=== PATIENT | male | born 1985 | race Caucasian/White ===

== ENCOUNTER 2017-01-11 17:12 | Inpatient (IN) | payer OTHER ==
[~2017-01-11] VITALS: Ht 177.8 cm; Wt 90.7 kg
[2017-01-11 18:00] VITALS: Ht 177.8 cm; Wt 90.7 kg
[2017-01-11 18:45] VITALS: BP 126/66; RESP 18
[2017-01-11 19:26] VITALS: BP 127/73; RESP 20
[2017-01-11] MEDS ORDERED: ONDANSETRON 4 MG INJ IV PRN (19:30)
[2017-01-11] MEDS ORDERED: DOCUSATE SODIUM 100 MG CAP PO PRN (19:30)
[2017-01-11] MEDS ORDERED: ACETAMINOPHEN 325 MG TAB PO PRN (19:30)
[2017-01-11] MEDS ORDERED: VANCOMYCIN IV PER PHARMACY XX SCH (19:30)
[2017-01-11] MEDS ORDERED: NACL 0.9% 3 ML SYG IV SCH (19:30)
[2017-01-11] MEDS ORDERED: HYDROCODONE/APAP (5/325) TAB PO PRN (19:30)
[2017-01-11] MEDS: morphine 2 MG INJ IV PRN (19:31)
[2017-01-11 20:32] LABS: CREATININE 0.84 mg/dl (0.61-1.24)
[2017-01-11] MEDS ORDERED: VANCOMYCIN 1.75 GM in NS 500 ML IVPB ONE (22:00)
[2017-01-11] MEDS: VANCOMYCIN 750 MG in SOD CHLORIDE 0.9% 150 ML IVPB SCH (23:19)
[2017-01-12] VITALS (8 sets, daily range): BP systolic 96–127; BP diastolic 49–80; PULSE 68–92; RESP 15–23
[2017-01-12] MEDS: morphine 2 MG INJ IV PRN ×2 (00:38→04:26)
--- NOTE | 2017-01-12 00:52 | CONS ---
DATE OF ADMISSION: 01/11/2017 DATE OF CONSULTATION: 01/11/2017 TYPE OF CONSULTATION: Orthopedic. HISTORY OF PRESENT ILLNESS: The patient is a 31-year-old male who was transferred in from [facility] because of the painful swelling involving his right upper extremity. According to the patien t, he developed this painful swelling about 3 to 4 days ago after working in his garbage cleaning. He was seen at the emergency room of [facility] about 2 days ago, and probably was treated with oral antibiotics; however, because of the increasing pain and swelling he returned to the [facility] Emergency Room today and was transferred in because of the insurance arrangement. He denies any use of IV drugs or skin popping. My examination revealed a 31-year-old male who is alert and oriented. He denies any substance use. He is showing low grade temperature with 100.5 and the CBC done in the emergency room of the [facility] on the day of his transfer is showing leukocytosis with a WBC count of 15.6. There was a localized area of what appeared to be part of the abscess in the antecubital fossa with the swelling proximally and distally. There were no palpable enlarged lymph nodes in the axillary area in a gross ited examination. There were no signs of neurovascular compromise at this time. Her range of motio n of the right elbow is limited because of the swelling and pain. CT of the right hip done in the [facility] is showing multi-loculated fluid collection in the a nterior aspect near the level of elbow which measures 2.6 cm x 1.7 cm x 4.6 cm along with the associ ated soft tissue swelling. DIAGNOSTIC IMPRESSION: Abscess over the antecubital fossa with a CT documented multi-loculated flui d collection along with the surrounding cellulitis. TREATMENT PLAN: 1. MRI scan of the right upper extremity. 2. To surgery for I and D of abscess after reviewing MRI scan. Dictated By: CHENTE LARA/ROSAURA Conf#: [id number] DID#: [id number]
[2017-01-12] MEDS: VANCOMYCIN 750 MG in SOD CHLORIDE 0.9% 150 ML IVPB SCH ×2 (05:33→13:07)
[2017-01-12 05:39] LABS: ADD SCAN DIFF NO
[2017-01-12 05:51] LABS: ABNORMAL IP MESSAGE 1; BASOPHIL # 0.1 10^3/ul (0.0-0.1); BASOPHILS % 0.3 % (0.0-2.0); EOSINOPHILS # 0.2 10^3/ul (0.0-0.5); EOSINOPHILS % 1.6 % (0.0-7.0); HEMATOCRIT 41.6 % (42.0-52.0); HEMOGLOBIN 14.3 g/dl (14.0-18.0); LYMPHOCYTES # 2.3 10^3/ul (0.8-2.9); LYMPHOCYTES % 15.7 % (15.0-51.0); MEAN CORPUSCULAR HEMOGLOBIN 30.5 pg (29.0-33.0); MEAN CORPUSCULAR HGB CONC 34.4 g/dl (32.0-37.0); MEAN CORPUSCULAR VOLUME 88.7 fl (82.0-101.0); MEAN PLATELET VOLUME 9.8 fl (7.4-10.4); MONOCYTE # 1.9 10^3/ul (0.3-0.9); MONOCYTES % 12.6 % (0.0-11.0); NEUTROPHIL # 10.2 10^3/ul (1.6-7.5); NEUTROPHILS % 69.5 % (39.0-77.0); PLATELET COUNT 311 10^3/UL (140-415); RED BLOOD COUNT 4.69 10^6/ul (4.70-6.10); RED CELL DISTRIBUTION WIDTH 12.2 % (11.5-14.5); WHITE BLOOD COUNT 14.8 10^3/ul (4.8-10.8)
[2017-01-12] MEDS ORDERED: morphine 4 MG/ML VIAL IV PRN ×2 (06:04→18:30)
[2017-01-12 06:26] LABS: POTASSIUM 4.2 mmol/L (3.5-5.1)
[2017-01-12 06:28] LABS: CREATININE 0.84 mg/dl (0.61-1.24)
[2017-01-12 06:29] LABS: PHOSPHORUS 3.7 mg/dl (2.5-4.9)
[2017-01-12] MEDS ORDERED: ACETAMINOPHEN 1000 MG/100 ML IVPB ONE (07:00)
[2017-01-12] MEDS ORDERED: CEFAZOLIN 1 GM INJ ONE (07:00)
--- NOTE | 2017-01-12 07:19 | HP ---
DATE OF ADMISSION: 01/11/2017 CHIEF COMPLAINT: Right elbow pain. HISTORY OF PRESENT ILLNESS: The patient is a 31-year-old male with no past medical history. 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 Three days ago, he noticed redness developing in his right elbow. He went to [facility] ____ the patient may have left AMA as he stated that he could not stay. He states that the redness in his arm got worse. He presented ba ck to [facility] today, where he had a CT scan of his right elbow that showed an abscess in the right upper arm. The patient was transferred to [facility] for insurance reasons. Lilli graves he has no other complaints. He denies any other medical history. PAST MEDICAL HISTORY: Denies. PAST SURGICAL HISTORY: Tonsillectomy as a kid. HOME MEDICATIONS: None. ALLERGIES: NO KNOWN DRUG ALLERGIES. FAMILY HISTORY: Denies. SOCIAL HISTORY: Does report smoking half pack of cigarettes a day. Denies any alcohol abuse. Zack es drug abuse. Denies any IV drug use. REVIEW OF SYSTEMS: Twelve-point review of systems negative except that discussed in HPI. PHYSICAL EXAMINATION: VITAL SIGNS: Temperature is 101.3, pulse 96, respiratory rate is 18, BP is 126/66, saturation 92% o n room air. GENERAL: No acute distress. Alert and oriented. HEENT: Normocephalic, atraumatic. Pupils equally round, reactive to light. CHEST: Clear to auscultation. CARDIOVASCULAR: Regular rate and rhythm. ABDOMEN: Nondistended, nontender, soft. EXTREMITIES: No clubbing, cyanosis, edema in the lower extremities. Right arm is notable for an ab scess at the right elbow. LABORATORIES: At [facility], white count ____, hemoglobin is 15.1, platelets are 285. Chemistry: Sodi um is 137, potassium is 4.0, chloride is 99, total bilirubin is 0.4, total protein is 8.7. INR is [address]03. DIAGNOSTICS: CT of the right arm shows ____ loculated fluid collection in anterior aspect of the ri ght upper arm, ____ to the elbow consistent with an abscess. ASSESSMENT AND PLAN: 1. Sepsis secondary to right arm abscess and cellulitis. The patient does meet sepsis criteria, carroll s a white count ____ and a temperature 101.3. Source is obviously the right elbow abscess. The pat ient will be put on IV antibiotics. Will get ID consultation as well as orthopedic consultation, Dr Matti Carbajal. Dr. Carbajal of Orthopedics is aware of the patient's admission status. Source of the infection reportedly is from working in the patient's grandmother's house. 2. Prophylaxis: SCDs. Dictated By: COOKIE FLORES MD BS/NTS Conf#: [id number] DID#: [id number]
[2017-01-12] MEDS ORDERED: INFLUENZA VIRUS VACCINE 0.5 ML (DISPENSING) IM* ONE (09:00)
--- NOTE | 2017-01-12 10:47 | PN ---
Date/Time of Note Date/Time of Note DATE: 01/12/17 TIME: 10:41 Assessment/Plan VTE Prophylaxis VTE Prophylaxis Intervention: SCD's Lines/Catheters IV Catheter Type (from Nrsg): [place] Lock Assessment/Plan Assessment/Plan 1. Sepsis per criteria secondary to right arm abscess and cellulitis. 2. Right arm abscess( possible right elbow abscess) 3. Intractable right arm pain due to abscess Plan: IV abx vancomyinc, I will add Ancef 1 gram IV Q 8 hr for streptococcus coverage d/c morphine, start IV Dilaudid 2 mg IV Q 4 hr prn severe pain S/p Orthopedic consult by , Plan for surgery today pt has no significant medical history ,no h/o CAD, no h/o stroke,no famiily History- pt is medically cleared for surgery with mild to moderate risk with appropriate surgical risks and complications CXR and EKG has been ordered for pre op DVT Prophylaxis: SCDs. Subjective 24 Hr Interval Summary Free Text/Dictation pt c/o arm pain, morphine is not helping, plan is to get MRI , s/p Ortho evaluation Exam/Review of Systems Vital Signs Vitals Vital Signs Date Time Temp Pulse Resp B/P Pulse Ox O2 Delivery O2 Flow Rate FiO2 01/12/17 08:11 99.2 83 18 117/62 95 Intake and Output 01/11/17 01/11/17 01/12/17 15:00 23:00 07:00 Intake Total 270 ml Balance 270 ml Exam GENERAL: No acute distress. Alert and oriented. HEENT: Normocephalic, atraumatic. Pupils equally round, reactive to light. CHEST: Clear to auscultation. CARDIOVASCULAR: Regular rate and rhythm. ABDOMEN: Nondistended, nontender, soft. EXTREMITIES: No clubbing, cyanosis, edema in the lower extremities. Right arm is notable for an abscess at the right elbow. Results Result Diagram: 01/12/17 0516 01/12/17 0516 Results 24 hrs Laboratory Tests Test 01/11/17 20:10 01/12/17 05:16 Blood Urea Nitrogen 8 14 Creatinine 0.84 0.84 Anion Gap 17 H Basophils # 0.1 Basophils % 0.3 Calcium Level 9.0 Carbon Dioxide Level 25 Chloride Level 101 Eosinophils # 0.2 Eosinophils % 1.6 Glucose Level 101 Hematocrit 41.6 L Hemoglobin 14.3 Hemoglobin A1c 5.2 Lymphocytes # 2.3 Lymphocytes % 15.7 Magnesium Level 2.0 Mean Corpuscular Hemoglobin 30.5 Mean Corpuscular Hemoglobin Concent 34.4 Mean Corpuscular Volume 88.7 Mean Platelet Volume 9.8 Monocytes # 1.9 H Monocytes % 12.6 H Neutrophils # 10.2 H Neutrophils % 69.5 Nucleated Red Blood Cells # 0.0 Nucleated Red Blood Cells % 0.0 Phosphorus Level 3.7 Platelet Count 311 Potassium Level 4.2 Red Blood Count 4.69 L Red Cell Distribution Width 12.2 Sodium Level 139 White Blood Count 14.8 H Medications Medications Current Medications Ondansetron HCl (Zofran Inj) 4 mg Q6H PRN IV NAUSEA AND/OR VOMITING; Start 01/11 at 19:30 Acetaminophen (Tylenol Tab) 650 mg Q6H PRN PO PAIN LEVEL 1-3 OR FEVER Last administered on 01/11/17 19:31; Admin Dose 650 MG; Start 01/11/17 at 19:30 Acetaminophen/ Hydrocodone Bitart ([place] (5/325)) 1 tab Q6H PRN PO MODERATE PAIN LEVEL 4-6 Last administered on 01/12/17 02:41; Admin Dose 1 TAB; Start 01/11 at 19:30 Docusate Sodium (Colace) 100 mg Q12H PRN PO CONSTIPATION; Start 01/11/17 at 19: 30 Zolpidem Tartrate 5 mg 5 mg QHS PRN PO SLEEP; Start 01/11/17 at 19:30 Vancomycin HCl/ Sodium Chloride (Vancocin/NS) 150 ml @ 75 mls/hr Q8H IVPB Last administered on 01/12/17 05:33; Admin Dose 75 MLS/HR; Start 01/11/17 at 22: 00 Miscellaneous Information (*Rx Drug Level Order Reminder*) VANCO TROUGH @ 2, 100 ON... ONCE ONCE XX ; Start 01/12/17 at 21:00; Stop 01/12/17 at 21:01 Hydromorphone HCl (Dilaudid) 2 mg Q4H PRN IV Severe PAIN; Start 01/12/17 at 11: 00; Status ROCKY VELÁZQUEZ MD Jan 12, 2017 10:46
--- NOTE | 2017-01-12 11:38 | RADRPT ---
PROCEDURE: Chest Radiograph. CLINICAL INDICATION: Preop TECHNIQUE: Single frontal chest radiograph. COMPARISON: None available FINDINGS: The cardiomediastinal silhouette is within normal limits. No infiltrate or effusion is seen. Th e bones are intact. IMPRESSION: 1. Unremarkable chest radiograph. RPTAT: AA .Austin Serrato MD, MD Date Time Electronically viewed and signed by .Austin Serrato MD, on 01/12/2017 11:38 .B/
--- NOTE | 2017-01-12 11:39 | RADRPT ---
PROCEDURE: MRI OF THE RIGHT ELBOW. CLINICAL INDICATION: Cellulitis, abscess. History of diabetes. TECHNIQUE: Multiple MRI images were obtained utilizing multiple sequences and all three planes. Genevieve ges were interpreted on high-resolution PACS system. COMPARISON: None FINDINGS: There is a loculated complex fluid collection suggestive of an abscess within the subcutaneous soft tissues of the anterior elbow extending adjacent to the biceps brachii muscle and brachialis muscle measuring up to 5.0 cm transverse by 4.1 cm AP by 7.2 cm cranial-caudal. The fluid collection exten ds adjacent to the skin surface. There is mild edema within the biceps brachii, brachialis, and bra chioradialis muscles. The biceps tendon is otherwise intact. The brachialis and triceps tendons are intact. The common extensor tendon is intact. The radial collateral and lateral ulnar collateral ligaments are intact. The common flexor tendon is intact. The medial collateral ligament is intact. There is no acute fracture or bone marrow edema. There is no evidence of osteomyelitis. The articula r cartilage of the radiocapitellar and ulnohumeral joints is intact. There are no erosive changes. No significant joint effusion is present. No osteochondral bodies are visualized. The ulnar nerve and cubital tunnel retinaculum are intact. The median and radial nerves are unremar kable. RPTAT: ZZ IMPRESSION: 1. Loculated abscess within the subcutaneous soft tissues of the anterior elbow over the biceps and brachialis muscles measuring up to 7.2 cm with adjacent muscle edema. 2. No evidence of osteomyelitis. .Alexia Baker MD, Date Time Electronically viewed and signed by .Alexia Baker MD, on 01/12/2017 11:39 .T/
[2017-01-12] MEDS: HYDROmorphONE 2 MG/ML SYG IV PRN ×3 (11:56→23:44)
--- NOTE | 2017-01-12 13:47 | RADRPT ---
Vent Rate: 84 bpm RR Interval: 0 msec NV Interval: 144 msec QRS Duration: 90 msec QT Interval: 350 msec QTC Interval: 413 msec P-R-T [place]: 47 - 34 - 51 degrees Normal sinus rhythm Normal ECG Electronically Signed By: Jesse Lopez [id number]
[2017-01-12 14:44] LABS: HAAIG REFLEX REFLEX FILED
[2017-01-12] MEDS: CEFAZOLIN 1 GM/50 ML (PMX) 50 ML IVPB SCH ×2 (15:33→21:36)
[2017-01-12 15:51] LABS: HEPATITIS B CORE ANTIBODY NEGATIVE (NEGATIVE)
--- NOTE | 2017-01-12 16:43 | HPN ---
Date/Time of Note Date/Time of Note DATE: 01/12/17 TIME: 16:43 Interval H&P Admission Note Pt. seen H&P reviewed: No system changes SIRI RODRIGUEZ MD Jan 12, 2017 16:43
[2017-01-12] MEDS ORDERED: PROPOFOL 20 ML ONE ×2 (16:59→17:30)
[2017-01-12] MEDS ORDERED: FENTAnyl 50 MCG/ML VIAL ONE ×2 (17:00→17:04)
[2017-01-12] MEDS ORDERED: MIDAZOLAM 1 MG/ML 2 ML INJ ONE ×3 (17:00→17:04)
[2017-01-12] MEDS ORDERED: ROPIVACAINE 0.5 % 30 ML VIAL ONE (17:05)
[2017-01-12] MEDS ORDERED: PHENYLephrine (100 MCG/ML) 5ML SYG ONE (17:17)
[2017-01-12] MEDS ORDERED: POLYMYXIN/BACITRACIN 1L IRRIG IRR ONE (17:30)
[2017-01-12] MEDS ORDERED: ONDANSETRON 4 MG INJ ONE (17:30)
[2017-01-12] MEDS ORDERED: METOCLOPRAMIDE 10 MG INJ ONE (17:30)
[2017-01-12] MEDS ORDERED: BACITRACIN 50000 UNITS INJ IRR ONE (17:30)
[2017-01-12] MEDS ORDERED: DEXAMETHASONE 4 MG/ML 1 ML INJ ONE (17:30)
[2017-01-12] MEDS ORDERED: KETOROLAC 30 MG INJ ONE (17:30)
[2017-01-12] MEDS: SOD CHLORIDE 0.9% 1,000 ML IV SCH (19:02)
--- NOTE | 2017-01-12 19:45 | OPR ---
DATE OF OPERATION: 01/12/2017 PREOPERATIVE DIAGNOSIS: Abscess over the antecubital fossa of the right elbow with extending cellul itis superior and inferiorly. POSTOPERATIVE DIAGNOSIS: Abscess over the antecubital fossa of the right elbow with extending cellu litis superior and inferiorly. OPERATION PERFORMED 1. Open irrigation and drainage of the abscess, followed by debridement as needed. 2. Closure over a [place] drain. ANESTHESIA: General anesthesia. SURGEON: Chente Carbajal MD PROCEDURE AND FINDINGS: Under anesthesia, the patient was placed in supine position upon the operat ing table. A tourniquet was placed over the proximal portion of the right arm, but was never inflat ed. A transverse incision was made along the skin crease over the anterior aspect of the antecubita l fossa, including the open wound. If needed, extended incision was planned proximally and distally according to the situation; however, extension was not needed. Through the incision, the area was explored and there was drainage of pus and a specimen was taken from the purulent drainage for labs tests. Gentle dissection was carried out proximally and distally over the area, taking down the adh esions and promoting further drainage. Following initial irrigation, further debridement was elsa d out with the assistance of hydrogen peroxide and then the area was thoroughly irrigated and washed using a power irrigation system implying antibiotic solutions. At the end of the procedure, the re turn seems to be fairly clean. At that time, multiple [place] drains were placed in the area. Then 2 stitches were placed for a partial closure. After, we put sterile pressure dressings over the a nico, procedure was terminated. The patient tolerated the entire procedure very well and was sent to the recovery room in excellent condition. Dictated By: CHENTE LARA/ROSAURA Conf#: [id number] DID#: [id number]
[2017-01-12] MEDS: VANCOMYCIN 1.5 GM in SOD CHLORIDE 0.9% 250 ML IVPB SCH (23:18)
[2017-01-13] MEDS: SOD CHLORIDE 0.9% 1,000 ML IV SCH ×3 (04:05→21:36)
[2017-01-13] MEDS: HYDROmorphONE 2 MG/ML SYG IV PRN ×5 (04:53→21:26)
[2017-01-13] MEDS: CEFAZOLIN 1 GM/50 ML (PMX) 50 ML IVPB SCH ×3 (05:29→21:30)
[2017-01-13 05:33] LABS: ADD SCAN DIFF NO
[2017-01-13 05:50] LABS: INR 1.02; PROTIME 13.4 Sec (12.2-14.2)
[2017-01-13 05:51] LABS: BASOPHILS % 0.1 % (0.0-2.0); HEMATOCRIT 40.3 % (42.0-52.0); HEMOGLOBIN 13.7 g/dl (14.0-18.0); LYMPHOCYTES # 1.2 10^3/ul (0.8-2.9); MEAN CORPUSCULAR HEMOGLOBIN 30.2 pg (29.0-33.0); MEAN PLATELET VOLUME 9.9 fl (7.4-10.4); MONOCYTE # 1.1 10^3/ul (0.3-0.9); MONOCYTES % 8.2 % (0.0-11.0); NEUTROPHILS % 82.3 % (39.0-77.0); PLATELET COUNT 340 10^3/UL (140-415); RED BLOOD COUNT 4.53 10^6/ul (4.70-6.10); RED CELL DISTRIBUTION WIDTH 11.8 % (11.5-14.5); WHITE BLOOD COUNT 13.4 10^3/ul (4.8-10.8)
[2017-01-13] MEDS: VANCOMYCIN 1.5 GM in SOD CHLORIDE 0.9% 250 ML IVPB SCH ×3 (06:32→22:30)
[2017-01-13 07:06] LABS: ALBUMIN 3.5 g/dl (3.3-4.9); POTASSIUM 4.2 mmol/L (3.5-5.1)
[2017-01-13 07:08] LABS: CREATININE 0.75 mg/dl (0.61-1.24)
[2017-01-13 07:09] LABS: ALBUMIN/GLOBULIN RATIO 1.25; TOTAL PROTEIN 6.3 g/dl (6.1-8.1)
[2017-01-13 07:26] VITALS: BP 117/78; RESP 20
--- NOTE | 2017-01-13 10:03 | PN ---
Date/Time of Note Date/Time of Note DATE: 01/13/17 TIME: 10:01 Assessment/Plan VTE Prophylaxis VTE Prophylaxis Intervention: other Lines/Catheters IV C[facility] Type [facility]from [facility] Peripheral IV Assessment/Plan Problems: (1) Hepatitis C antibody positive in blood Status: Acute Comment: Unknown duration. The patient has a negative hepatitis B surface antigen. Waiting the hepatitis C viral RNA confirmation. If he has positive RNA he will will need to be referred for treatment as an outpatient. (2) Abscess of right arm Status: Acute Comment: Patient reports that this was due to a trauma while working in his garage. He denies any history of injury or injection drug usage Subjective 24 Hr Interval Summary Constitutional: no complaints (Denies fevers chills or sweats) Respiratory: no complaints Cardiovascular: no complaints Gastrointestinal: no complaints Genitourinary: no complaints Skin: other (Reports arm pain is much better) Exam/Review of Systems Vital Signs Vitals Vital Signs Date Time Temp Pulse Resp B/P Pulse Ox O2 Delivery O2 Flow Rate FiO2 01/13/17 07:26 98.2 82 20 117/78 98 01/12/17 19:53 Room Air 01/12/17 18:18 6.0 Intake and Output 01/12/17 01/12/17 01/13/17 15:00 23:00 07:00 Intake Total 150 ml 800 ml 850 ml Output Total 20 ml Balance 150 ml 780 ml 850 ml Exam Constitutional: alert, oriented Respiratory: clear to auscultation, normal air movement Cardiovascular: nl pulses, regular rate and rhythm Results Result Diagram: 01/13/17 0501 01/13/17 0501 Results 24 hrs Laboratory Tests Test 01/12/17 14:10 01/12/17 21:20 01/13/17 05:01 HIV (1&2) Antibody NEGATIVE Hepatitis B Core Total Antibody NEGATIVE Hepatitis B Surface Antigen NEGATIVE Hepatitis C Antibody REACTIVE H Vancomycin Level Trough < 5.0 L Activated Partial Thromboplast Time 32.0 Alanine Aminotransferase (ALT/SGPT) 45 Albumin 3.5 Albumin/Globulin Ratio 1.25 Alkaline Phosphatase 84 Anion Gap 18 H Aspartate Amino Transf (AST/SGOT) 17 Basophils # 0.0 Basophils % 0.1 Blood Urea Nitrogen 17 Calcium Level 9.0 Carbon Dioxide Level 20 L Chloride Level 107 Creatinine 0.75 Direct Bilirubin 0.00 Eosinophils # 0.0 Eosinophils % 0.0 Globulin 2.80 Glucose Level 149 # Hematocrit 40.3 L Hemoglobin 13.7 L INR International Normalized Ratio 1.02 Indirect Bilirubin 0.0 Lymphocytes # 1.2 Lymphocytes % 9.0 L Mean Corpuscular Hemoglobin 30.2 Mean Corpuscular Hemoglobin Concent 34.0 Mean Corpuscular Volume 89.0 Mean Platelet Volume 9.9 Monocytes # 1.1 H Monocytes % 8.2 Neutrophils # 11.0 H Neutrophils % 82.3 H Nucleated Red Blood Cells # 0.0 Nucleated Red Blood Cells % 0.0 Platelet Count 340 Potassium Level 4.2 Prothrombin Time 13.4 Prothrombin Time Ratio 1.0 Red Blood Count 4.53 L Red Cell Distribution Width 11.8 Sodium Level 141 Total Bilirubin 0.0 L Total Protein 6.3 White Blood Count 13.4 H Medications Medications Current Medications Ondansetron HCl (Zofran Inj) 4 mg Q6H PRN IV NAUSEA AND/OR VOMITING; Start 01/11 at 19:30 Acetaminophen (Tylenol Tab) 650 mg Q6H PRN PO PAIN LEVEL 1-3 OR FEVER Last administered on 01/11/17 19:31; Admin Dose 650 MG; Start 01/11/17 at 19:30 Acetaminophen/ Hydrocodone Bitart ([place] (5/325)) 1 tab Q6H PRN PO MODERATE PAIN LEVEL 4-6 Last administered on 01/12/17 02:41; Admin Dose 1 TAB; Start 01/11 at 19:30 Docusate Sodium (Colace) 100 mg Q12H PRN PO CONSTIPATION; Start 01/11/17 at 19: 30 Zolpidem Tartrate (Ambien) 5 mg QHS PRN PO SLEEP; Start 01/11/17 at 19:30 Hydromorphone HCl 2 mg 2 mg Q4H PRN IV Severe PAIN Last administered on 09:19; Admin Dose 2 MG; Start 01/12/17 at 11:00 Cefazolin Sodium 50 ml @ 100 mls/hr Q8 IVPB Last administered on 01/13/17 05: 29; Admin Dose 100 MLS/HR; Start 01/12/17 at 14:00 Sodium Chloride (NS) 1,000 ml @ 100 mls/hr Q10H IV Last administered on 19:02; Admin Dose 100 MLS/HR; Start 01/12/17 at 18:05 Morphine Sulfate (morphine) 3 mg Q3H PRN IV PAIN; Start 01/12/17 at 18:30 Acetaminophen/ Hydrocodone Bitart 1 tab 1 tab Q3 PRN PO pain; Start 01/12/17 at 18:30 Vancomycin HCl/ Sodium Chloride (Vancocin/NS) 250 ml @ 83.333 mls/ hr Q8H IVPB Last administered on 01/13/17 06:32; Admin Dose 83.333 MLS/HR; Start 01/12/17 at 22:30 FREDERICK MENDES MD Jan 13, 2017 10:03
[2017-01-13 10:18] LABS: ADD SCAN DIFF NO
[2017-01-13 10:24] LABS: ABNORMAL IP MESSAGE 1; BASOPHILS % 0.2 % (0.0-2.0); HEMOGLOBIN 13.1 g/dl (14.0-18.0); LYMPHOCYTES # 1.6 10^3/ul (0.8-2.9); LYMPHOCYTES % 9.4 % (15.0-51.0); MEAN CORPUSCULAR HEMOGLOBIN 30.8 pg (29.0-33.0); MEAN CORPUSCULAR HGB CONC 34.5 g/dl (32.0-37.0); MEAN CORPUSCULAR VOLUME 89.2 fl (82.0-101.0); MEAN PLATELET VOLUME 9.8 fl (7.4-10.4); MONOCYTE # 1.7 10^3/ul (0.3-0.9); MONOCYTES % 9.9 % (0.0-11.0); NEUTROPHIL # 13.5 10^3/ul (1.6-7.5); PLATELET COUNT 357 10^3/UL (140-415); RED BLOOD COUNT 4.26 10^6/ul (4.70-6.10); RED CELL DISTRIBUTION WIDTH 11.9 % (11.5-14.5); WHITE BLOOD COUNT 16.8 10^3/ul (4.8-10.8)
[2017-01-13] MEDS: HYDROCODONE/APAP (7.5/325) TAB PO PRN ×3 (12:08→22:37)
[2017-01-13 19:00] VITALS: BP 110/69; RESP 20
[2017-01-14] MEDS: HYDROmorphONE 2 MG/ML SYG IV PRN ×6 (01:38→22:50)
[2017-01-14] MEDS: HYDROCODONE/APAP (7.5/325) TAB PO PRN ×3 (02:43→20:10)
[2017-01-14] MEDS: VANCOMYCIN 1.25 GM in SOD CHLORIDE 0.9% 250 ML IVPB SCH ×3 (02:43→18:47)
[2017-01-14] MEDS: CEFAZOLIN 1 GM/50 ML (PMX) 50 ML IVPB SCH ×4 (05:31→22:50)
[2017-01-14 07:23] VITALS: BP 111/55; RESP 20
--- NOTE | 2017-01-14 09:32 | PN ---
Date/Time of Note Date/Time of Note DATE: 01/14/17 TIME: 09:30 Assessment/Plan VTE Prophylaxis VTE Prophylaxis Intervention: other Lines/Catheters IV Catheter Type (from [facility]): Peripheral IV Urinary Cath still in place: No Assessment/Plan Problems: (1) Abscess of right arm Status: Acute Comment: Transition over to oral medications. Discharge timing and planning as per Dr. Carbajal. (2) Hepatitis C antibody positive in blood Status: Acute Comment: I have informed the patient of this. He has been advised he will need to follow-up with his primary care physician through [facility] [place] under [employer] insurance Subjective 24 Hr Interval Summary Free Text/Dictation Patient reports he is improving steadily. No known history of exposure to hepatitis not allergic to sulfa Constitutional: no complaints (No fevers chills or sweats) Respiratory: no complaints Cardiovascular: no complaints Gastrointestinal: no complaints Genitourinary: no complaints Musculoskeletal: other (Arm pain improved) Exam/Review of Systems Vital Signs Vitals Vital Signs Date Time Temp Pulse Resp B/P Pulse Ox O2 Delivery O2 Flow Rate FiO2 01/14/17 07:23 97.9 65 20 111/55 97 01/12/17 19:53 Room Air 01/12/17 18:18 6.0 Intake and Output 01/13/17 01/13/17 01/14/17 15:00 23:00 07:00 Intake Total 2920 ml 1220 ml Balance 2920 ml 1220 ml Exam Constitutional: alert, oriented Respiratory: clear to auscultation, normal air movement Cardiovascular: nl pulses, regular rate and rhythm Gastrointestinal: nl liver, spleen, non-tender, soft Extremities: other (Right arm better range of motion.) Results Result Diagram: 01/13/17 0935 01/13/17 0501 Results 24 hrs Laboratory Tests Test 01/13/17 09:35 01/13/17 21:35 Basophils # 0.0 Basophils % 0.2 Eosinophils # 0.0 Eosinophils % 0.0 Hematocrit 38.0 L Hemoglobin 13.1 L Lymphocytes # 1.6 Lymphocytes % 9.4 L Mean Corpuscular Hemoglobin 30.8 Mean Corpuscular Hemoglobin Concent 34.5 Mean Corpuscular Volume 89.2 Mean Platelet Volume 9.8 Monocytes # 1.7 H Monocytes % 9.9 Neutrophils # 13.5 H Neutrophils % 80.0 H Nucleated Red Blood Cells # 0.0 Nucleated Red Blood Cells % 0.0 Platelet Count 357 Red Blood Count 4.26 L Red Cell Distribution Width 11.9 White Blood Count 16.8 #H Vancomycin Level Trough 22.7 *H Medications Medications Current Medications Ondansetron HCl (Zofran Inj) 4 mg Q6H PRN IV NAUSEA AND/OR VOMITING; Start 01/11 at 19:30 Acetaminophen (Tylenol Tab) 650 mg Q6H PRN PO PAIN LEVEL 1-3 OR FEVER Last administered on 01/11/17 19:31; Admin Dose 650 MG; Start 01/11/17 at 19:30 Acetaminophen/ Hydrocodone Bitart ([place] (5/325)) 1 tab Q6H PRN PO MODERATE PAIN LEVEL 4-6 Last administered on 01/12/17 02:41; Admin Dose 1 TAB; Start 01/11 at 19:30 Docusate Sodium (Colace) 100 mg Q12H PRN PO CONSTIPATION; Start 01/11/17 at 19: 30 Zolpidem Tartrate (Ambien) 5 mg QHS PRN PO SLEEP; Start 01/11/17 at 19:30 Hydromorphone HCl 2 mg 2 mg Q4H PRN IV Severe PAIN Last administered on 05:31; Admin Dose 2 MG; Start 01/12/17 at 11:00 Cefazolin Sodium 50 ml @ 100 mls/hr Q8 IVPB Last administered on 01/14/17 05: 31; Admin Dose 100 MLS/HR; Start 01/12/17 at 14:00 Sodium Chloride (NS) 1,000 ml @ 100 mls/hr Q10H IV Last administered on 21:36; Admin Dose 100 MLS/HR; Start 01/12/17 at 18:05 Morphine Sulfate (morphine) 3 mg Q3H PRN IV PAIN; Start 01/12/17 at 18:30 Acetaminophen/ Hydrocodone Bitart 1 tab 1 tab Q3 PRN PO pain Last administered on 01/14/17 02:43; Admin Dose 1 TAB; Start 01/12/17 at 18:30 Vancomycin HCl/ Sodium Chloride (Vancocin/NS) 250 ml @ 83.333 mls/ hr Q8H IVPB Last administered on 01/14/17 02:43; Admin Dose 83.333 MLS/HR; Start 01/14/17 at 03:00 FREDERICK MENDES MD Jan 14, 2017 09:32
[2017-01-14] MEDS: TRIMETHOPRIM/SULFAMETHOX (DS) TAB PO SCH ×2 (09:37→20:10)
[2017-01-14] MEDS: SOD CHLORIDE 0.9% 1,000 ML IV SCH ×2 (09:38→20:10)
--- NOTE | 2017-01-14 18:24 | PN ---
DATE: 01/14/2017 Second postop day, afebrile with a temperature of 97.9 Fahrenheit and still had a leukocytosis with the WBC count of 16.8 on 01/10/2017. The dressings were opened and the area was inspected. Patient obviously was opening the dressings on his own and had removed 3 [place] drains out of [address] maynard I have placed in. Part of the skin sutures were also disrupted. The patient was initially den cecilio handling the dressings himself; however, he admits that he was playing with the dressings. Genia inabre is minimal; however, judging from the patient's handling dressings without any aseptic precaut ions means that there might be additional iatrogenic infection. Probably the patient will need repe ated open irrigation followed by repeated closure of the wound over a suction tube so that the sucti on tubes can be removed prior to discharge. The patient has been also going down with a heparin lock in place, suggesting the possibility of him injecting IV drugs through the heparin lock. The patient was advised not to go down any further. The patient will be scheduled for repeat irrigation and closure of the incision over the suction tub e 03/17/2017. Dictated By: CHENTE LARA/ROSAURA Conf#: [id number] DID#: [id number]
[2017-01-14 20:00] VITALS: BP 115/56; PULSE 62; RESP 18
[2017-01-14] MEDS: ZOLPIDEM 5 MG TAB PO PRN (23:14)
[2017-01-15] VITALS (16 sets, daily range): BP systolic 100–137; BP diastolic 53–80; PULSE 64–89; RESP 12–20
[2017-01-15] MEDS: VANCOMYCIN 1.25 GM in SOD CHLORIDE 0.9% 250 ML IVPB SCH ×2 (03:07→11:13)
[2017-01-15] MEDS: HYDROmorphONE 2 MG/ML SYG IV PRN ×5 (04:17→21:18)
[2017-01-15] MEDS: SOD CHLORIDE 0.9% 1,000 ML IV SCH ×3 (05:45→23:33)
[2017-01-15] MEDS: CEFAZOLIN 1 GM/50 ML (PMX) 50 ML IVPB SCH ×2 (06:15→16:00)
[2017-01-15] MEDS: TRIMETHOPRIM/SULFAMETHOX (DS) TAB PO SCH (08:50)
--- NOTE | 2017-01-15 09:55 | PN ---
Date/Time of Note Date/Time of Note DATE: 01/15/17 TIME: 09:52 Assessment/Plan VTE Prophylaxis VTE Prophylaxis Intervention: SCD's Lines/Catheters IV Catheter Type (from Nrsg): Peripheral IV Urinary Cath still in place: No Assessment/Plan Assessment/Plan 1. Sepsis per criteria secondary to right arm abscess and cellulitis. 2. Right arm abscess( possible right elbow abscess) s/p Incision and drainage by orthopedic 3. Intractable right arm pain due to abscess Plan: IV abx ancef and vancomycin drain catheter pulled out by patient, plan for closure of wound by today d/c IVF tomorrow on Sunday DVT Prophylaxis: SCDs. Subjective 24 Hr Interval Summary Free Text/Dictation drain pulled out by patient, plan for reclosure of wound by Exam/Review of Systems Vital Signs Vitals Vital Signs Date Time Temp Pulse Resp B/P Pulse Ox O2 Delivery O2 Flow Rate FiO2 01/15/17 07:31 97.4 63 20 100/53 98 01/14/17 20:00 Room Air 01/12/17 18:18 6.0 Intake and Output 01/14/17 01/14/17 01/15/17 14:59 22:59 06:59 Intake Total 3300 ml 650 ml Balance 3300 ml 650 ml Exam Constitutional: alert, oriented Respiratory: clear to auscultation, normal air movement Cardiovascular: nl pulses, regular rate and rhythm Gastrointestinal: nl liver, spleen, non-tender, soft Extremities: other (Right arm better range of motion.) Results Result Diagram: 01/13/17 0935 01/13/17 0501 Medications Medications Current Medications Ondansetron HCl (Zofran Inj) 4 mg Q6H PRN IV NAUSEA AND/OR VOMITING; Start 01/11 at 19:30 Acetaminophen (Tylenol Tab) 650 mg Q6H PRN PO PAIN LEVEL 1-3 OR FEVER Last administered on 01/11/17 19:31; Admin Dose 650 MG; Start 01/11/17 at 19:30 Acetaminophen/ Hydrocodone Bitart ([place] (5/325)) 1 tab Q6H PRN PO MODERATE PAIN LEVEL 4-6 Last administered on 01/12/17 02:41; Admin Dose 1 TAB; Start 01/11 at 19:30 Docusate Sodium (Colace) 100 mg Q12H PRN PO CONSTIPATION; Start 01/11/17 at 19: 30 Zolpidem Tartrate (Ambien) 5 mg QHS PRN PO SLEEP Last administered on 01/14/17 23:14; Admin Dose 5 MG; Start 01/11/17 at 19:30 Hydromorphone HCl 2 mg 2 mg Q4H PRN IV Severe PAIN Last administered on 08:51; Admin Dose 2 MG; Start 01/12/17 at 11:00 Cefazolin Sodium 50 ml @ 100 mls/hr Q8 IVPB Last administered on 01/15/17 06: 15; Admin Dose 100 MLS/HR; Start 01/12/17 at 14:00 Sodium Chloride (NS) 1,000 ml @ 100 mls/hr Q10H IV Last administered on 20:10; Admin Dose 100 MLS/HR; Start 01/12/17 at 18:05 Morphine Sulfate (morphine) 3 mg Q3H PRN IV PAIN; Start 01/12/17 at 18:30 Acetaminophen/ Hydrocodone Bitart 1 tab 1 tab Q3 PRN PO pain Last administered on 01/14/17 20:10; Admin Dose 1 TAB; Start 01/12/17 at 18:30 Vancomycin HCl/ Sodium Chloride (Vancocin/NS) 250 ml @ 83.333 mls/ hr Q8H IVPB Last administered on 01/15/17 03:07; Admin Dose 83.333 MLS/HR; Start 01/14/17 at 03:00 Trimethoprim/ Sulfamethoxazole (Bactrim (Ds)) 1 tab BID PO Last administered on 01/15/17 08:50; Admin Dose 1 TAB; Start 01/14/17 at 09:30; Stop 01/24/17 at 09 :29 ROCKY BHAKTA MD Jan 15, 2017 09:55
--- NOTE | 2017-01-15 13:37 | HPN ---
Date/Time of Note Date/Time of Note DATE: 01/15/17 TIME: 13:37 Interval H&P Admission Note Pt. seen H&P reviewed: No system changes SIRI RODRIGUEZ MD Jan 15, 2017 13:37
[2017-01-15] MEDS ORDERED: SODIUM CL BACTERIOSTATIC 30 ML INJ ONE (13:38)
[2017-01-15] MEDS ORDERED: PROPOFOL 20 ML ONE (13:48)
[2017-01-15] MEDS ORDERED: ONDANSETRON 4 MG INJ ONE (13:48)
[2017-01-15] MEDS ORDERED: ROCURONIUM 50 MG INJ ONE (13:48)
[2017-01-15] MEDS ORDERED: MIDAZOLAM 1 MG/ML 2 ML INJ ONE (13:48)
[2017-01-15] MEDS ORDERED: FENTAnyl 50 MCG/ML VIAL ONE (13:48)
[2017-01-15] MEDS ORDERED: GLYCOPYRROLATE 1 MG INJ ONE (13:48)
[2017-01-15] MEDS ORDERED: NEOSTIGMINE 3 MG/3 ML SYRINGE ONE (13:48)
[2017-01-15] MEDS ORDERED: DEXAMETHASONE 4 MG/ML 1 ML INJ ONE (13:49)
[2017-01-15] MEDS ORDERED: ROPIVACAINE 0.5 % 30 ML VIAL ONE (13:49)
[2017-01-15] MEDS ORDERED: BACITRACIN 50000 UNITS INJ IRR ONE (14:20)
[2017-01-15] MEDS ORDERED: TRIMETHOBENZAMIDE 100 MG/ML VIAL IM PRN (14:30)
[2017-01-15] MEDS ORDERED: ONDANSETRON 4 MG INJ IV PRN (14:30)
[2017-01-15] MEDS ORDERED: hydrALAzine 20 MG INJ IV PRN (14:30)
[2017-01-15] MEDS ORDERED: MEPERIDINE 25 MG INJ IV PRN (14:30)
[2017-01-15] MEDS ORDERED: MIDAZOLAM 1 MG/ML 2 ML INJ IV PRN (14:30)
[2017-01-15] MEDS ORDERED: DIPHENHYDRAMINE 50 MG INJ IV PRN (14:30)
[2017-01-15] MEDS ORDERED: FENTAnyl 50 MCG/ML VIAL IV PRN ×3 (14:30)
[2017-01-15] MEDS ORDERED: EPHEDrine SULFATE 50 MG/5 ML SYG IV PRN (14:30)
[2017-01-15] MEDS ORDERED: LABETALOL HCL 20MG INJ IV PRN (14:30)
[2017-01-15] MEDS ORDERED: HYDROCODONE/APAP (5/325) TAB PO PRN (15:00)
[2017-01-15] MEDS ORDERED: morphine 2 MG INJ IV PRN (15:00)
[2017-01-15] MEDS ORDERED: NACL 0.9% 3 ML SYG IV SCH (15:00)
--- NOTE | 2017-01-15 15:27 | OPR ---
DATE OF OPERATION: 01/15/2017 PREOPERATIVE DIAGNOSIS: Open wound following incision and drainage of abscess, right elbow with iat rogenic recurrent soiling and early removal of the drain. POSTOPERATIVE DIAGNOSIS: Open wound following incision and drainage of abscess, right elbow with ia trogenic recurrent soiling and early removal of the drain. OPERATION PERFORMED: Open irrigation and debridement followed by a closure. ANESTHESIA: General anesthesia. SURGEON: Chente Carbajal MD PROCEDURE AND FINDINGS: Under anesthesia, the patient was placed in supine position upon the operat ing table. The usual prep and drape was done exposing the right elbow and right upper extremity. E xploration revealed that there is a fair amount of healing granulation tissue going from underneath; however, there was a recurrent contamination of the wound. Using power irrigation system and utili zing antibiotic solution, the area was thoroughly irrigated and cleared and debrided. Bleeding was minimal. Following the debridement and closure of the wound was carried out using 2-0 Vicryl in sub cuticular fashion and then skin closure was carried out with Dermabond in order to prevent any furth er soiling. The usual sterile pressure dressings were applied. The patient tolerated the entire procedure very well and was sent to the recovery room in excellent condition. Dictated By: CHENTE LARA/ROSAURA Conf#: [id number] DID#: [id number]
[2017-01-15] MEDS: HYDROCODONE/APAP (7.5/325) TAB PO PRN (16:06)
--- NOTE | 2017-01-15 17:03 | CONS ---
DATE OF ADMISSION: 01/11/2017 DATE OF CONSULTATION: 01/15/2017 REASON FOR CONSULTATION: Antibiotic management. HISTORY OF PRESENT ILLNESS: Aric Belle is a 31-year-old male who comes in with right elbow pain . His past problems include status post T and A as a child. 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 He went to the emergency room at [facility] but left AMA. The redness got worse. Sarthak lock presented again to [facility]. A CT scan of the right elbow showed an abscess to the right u pper arm. He was transferred to [facility]. This was on 01/11/2017. He was felt to be se ptic secondary to right arm abscess and cellulitis with a temperature of 101.3. On admission, his w maritza count was 14.8, H and H of 14.3 and 41.6, platelet count of 311,000. Now, he is 16.8. His BUN and creatinine 17/0.75 and he is negative for HIV, but has hepatitis C antibody. So he is hepatiti s C positive. An MRI of the elbow showed loculated abscess within the subcutaneous soft tissue of t he anterior elbow over the biceps and the brachium muscles measuring up to 7.2 cm with adjacent musc le edema. No evidence of osteomyelitis. Chest x-ray unremarkable. MICROBIOLOGY: The right arm is growing out Staph aureus which is sensitive to everything. HOSPITAL COURSE: The patient seen by Dr. Mona Carbajal and on 01/12/2017 he had open irrigation and alexander inage of the abscess, which was over the antecubital fossa of the right elbow with extending celluli tis inferior. A transverse incision was made along the skin crease over the anterior aspect of the antecubital fossa including the open wound. Area was explored and there was drainage of pus. He carroll d further irrigation and debridement with hydrogen peroxide and it was thoroughly irrigated. Multip le Allen drains were placed in the area. Currently, on 01/15/2017, he again had open irrigation a nd debridement followed by closure. Open wound following incision and drainage of abscess right elb ow with the iatrogenic recurrent soiling and early removal of the drain. PAST MEDICAL HISTORY: Operations as outlined. FAMILY HISTORY: Noncontributory. SOCIAL HISTORY: He smokes a half pack a day. Does not drink or abuse drugs. ALLERGIES: NONE TO PENICILLIN, SULFA OR FOODS. MEDICATIONS: Per chart. REVIEW OF SYSTEMS: As per HPI. PHYSICAL EXAMINATION: GENERAL: The patient is a well-developed, well-nourished male who is alert, responsive, in no acute distress. VITAL SIGNS: T-max of 101.3. This was on 01/11/2017. He is currently afebrile. SKIN: Without generalized rash. HEENT: Within normal limits. NECK: Supple. LYMPH NODES: None palpable. CHEST: Decreased breath sounds at the bases. HEART: Without murmur or gallop. ABDOMEN: Soft, nontender, without organosplenomegaly or masses. EXTREMITIES: The right arm is wrapped at the present time status post irrigation and drainage x2. He is currently on vancomycin and cefazolin. According to the culture he is growing out Staph aureu s sensitive to Cefazolin, Levaquin, and to vancomycin. We will switch him over to ceftriaxone. I w ill dictate my findings to the hospitalist and to Dr. Carbajal. Dictated By: KENAN NICOLE MD, JD/ROSAURA Conf#: [id number] DID#: [id number]
[2017-01-15] MEDS: CEFTRIAXONE 1 GM/50 ML (PMX) 50 ML IVPB SCH (17:16)
[2017-01-15] MEDS: ZOLPIDEM 5 MG TAB PO PRN (21:30)
[2017-01-16] MEDS: HYDROmorphONE 2 MG/ML SYG IV PRN ×6 (02:04→22:38)
[2017-01-16 05:38] LABS: ADD SCAN DIFF NO
[2017-01-16 05:53] LABS: BASOPHILS % 0.2 % (0.0-2.0); EOSINOPHILS % 0.1 % (0.0-7.0); HEMATOCRIT 40.6 % (42.0-52.0); HEMOGLOBIN 13.6 g/dl (14.0-18.0); LYMPHOCYTES # 1.8 10^3/ul (0.8-2.9); LYMPHOCYTES % 10.2 % (15.0-51.0); MEAN CORPUSCULAR HGB CONC 33.5 g/dl (32.0-37.0); MEAN CORPUSCULAR VOLUME 89.6 fl (82.0-101.0); MEAN PLATELET VOLUME 9.5 fl (7.4-10.4); MONOCYTE # 1.3 10^3/ul (0.3-0.9); MONOCYTES % 7.1 % (0.0-11.0); NEUTROPHIL # 14.4 10^3/ul (1.6-7.5); NEUTROPHILS % 81.2 % (39.0-77.0); PLATELET COUNT 453 10^3/UL (140-415); RED BLOOD COUNT 4.53 10^6/ul (4.70-6.10); RED CELL DISTRIBUTION WIDTH 11.9 % (11.5-14.5); WHITE BLOOD COUNT 17.8 10^3/ul (4.8-10.8)
[2017-01-16 05:59] LABS: INR 0.96; PROTIME 12.8 Sec (12.2-14.2)
[2017-01-16 06:00] LABS: PARTIAL THROMBOPLASTIN TIME 27.8 Sec (25.0-35.0)
[2017-01-16 06:09] LABS: POTASSIUM 3.9 mmol/L (3.5-5.1)
[2017-01-16 06:12] LABS: CREATININE 0.64 mg/dl (0.61-1.24)
[2017-01-16 06:13] LABS: CALCIUM 8.5 mg/dl (8.4-10.2)
[2017-01-16 07:23] VITALS: BP 119/68; RESP 20
[2017-01-16] MEDS: SOD CHLORIDE 0.9% 1,000 ML IV SCH (10:31)
--- NOTE | 2017-01-16 13:25 | PN ---
DATE: 01/16/2017 SUBJECTIVE: No acute changes overnight. The patient is alert, feels good, looks comfortable. No f sandy. MICROBIOLOGY: Wound culture of his right upper extremity growing Staphylococcus aureus resistant on ly to penicillin and erythromycin. ANTIMICROBIALS: The patient is on IV Rocephin. PHYSICAL EXAMINATION: GENERAL: Well-developed, well-nourished young man, who is alert, in no distress. HEENT: Head atraumatic, normocephalic. Sclerae anicteric. Buccal mucosa pink. NECK: Supple, trachea midline. CHEST: Rise symmetrical. Breath sounds clear. HEART: S1, S2. ABDOMEN: Soft, bowel sounds present. EXTREMITIES: With right upper extremity Zaire wrap. ASSESSMENT: 1. Right upper extremity cellulitis with abscess, status post incision and drainage with wound cult ure growing oxacillin-sensitive Staphylococcus aureus. 2. Status post systemic inflammatory response syndrome. PLAN: The patient remains stable. Continue present care. Continue on current antimicrobials. Fol low orthopedic recommendations in regards to wound management. Dictated By: ANITA MIGUEL [employer] BATHER for KENAN RUST/ROSAURA Conf#: [id number] DID#: [id number]
--- NOTE | 2017-01-16 15:25 | PN ---
Date/Time of Note Date/Time of Note DATE: 01/16/17 TIME: 15:24 Assessment/Plan VTE Prophylaxis VTE Prophylaxis Intervention: SCD's Lines/Catheters IV Catheter Type (from Nrsg): Peripheral IV Urinary Cath still in place: No Assessment/Plan Assessment/Plan 1. Sepsis per criteria secondary to right arm abscess and cellulitis. 2. Right arm abscess( possible right elbow abscess) s/p Incision and drainage by orthopedic 3. Intractable right arm pain due to abscess Plan: IV abx ancef and vancomycin s/p another I & D By on 01/15/17- wound cx pending ID consulted - to decide for IV vs PO abx DVT Prophylaxis: SCDs. Subjective 24 Hr Interval Summary Free Text/Dictation s/p another I & D by yesterday, pain controlled, wound cx pending Exam/Review of Systems Vital Signs Vitals Vital Signs Date Time Temp Pulse Resp B/P Pulse Ox O2 Delivery O2 Flow Rate FiO2 01/16/17 07:23 97.8 78 20 119/68 96 01/15/17 15:37 Room Air 01/12/17 18:18 6.0 Intake and Output 01/15/17 01/15/17 01/16/17 15:00 23:00 07:00 Intake Total 600 ml 1630 ml 700 ml Output Total 5 ml Balance 595 ml 1630 ml 700 ml Exam Constitutional: alert, oriented Respiratory: clear to auscultation, normal air movement Cardiovascular: nl pulses, regular rate and rhythm Gastrointestinal: nl liver, spleen, non-tender, soft Extremities: other (Right arm better range of motion.) Results Result Diagram: 01/16/17 0455 01/16/17 0455 Results 24 hrs Laboratory Tests Test 01/16/17 04:55 Activated Partial Thromboplast Time 27.8 Anion Gap 15 Basophils # 0.0 Basophils % 0.2 Blood Urea Nitrogen 11 Calcium Level 8.5 Carbon Dioxide Level 27 Chloride Level 104 Creatinine 0.64 Eosinophils # 0.0 Eosinophils % 0.1 Glucose Level 101 Hematocrit 40.6 L Hemoglobin 13.6 L INR International Normalized Ratio 0.96 Lymphocytes # 1.8 Lymphocytes % 10.2 L Mean Corpuscular Hemoglobin 30.0 Mean Corpuscular Hemoglobin Concent 33.5 Mean Corpuscular Volume 89.6 Mean Platelet Volume 9.5 Monocytes # 1.3 H Monocytes % 7.1 Neutrophils # 14.4 H Neutrophils % 81.2 H Nucleated Red Blood Cells # 0.0 Nucleated Red Blood Cells % 0.0 Platelet Count 453 #H Potassium Level 3.9 Prothrombin Time 12.8 Prothrombin Time Ratio 1.0 Red Blood Count 4.53 L Red Cell Distribution Width 11.9 Sodium Level 142 White Blood Count 17.8 H Medications Medications Current Medications Ondansetron HCl (Zofran Inj) 4 mg Q6H PRN IV NAUSEA AND/OR VOMITING; Start 01/11 at 19:30 Acetaminophen (Tylenol Tab) 650 mg Q6H PRN PO PAIN LEVEL 1-3 OR FEVER Last administered on 01/11/17 19:31; Admin Dose 650 MG; Start 01/11/17 at 19:30 Docusate Sodium (Colace) 100 mg Q12H PRN PO CONSTIPATION; Start 01/11/17 at 19: 30 Zolpidem Tartrate (Ambien) 5 mg QHS PRN PO SLEEP Last administered on 01/15/17 21:30; Admin Dose 5 MG; Start 01/11/17 at 19:30 Hydromorphone HCl (Dilaudid) 2 mg Q4H PRN IV Severe PAIN Last administered on 14:37; Admin Dose 2 MG; Start 01/12/17 at 11:00 Acetaminophen/ Hydrocodone Bitart ([place] (7.5-325)) 1 tab Q3 PRN PO pain Last administered on 01/15/17 16:06; Admin Dose 1 TAB; Start 01/12/17 at 18:30 Acetaminophen/ Hydrocodone Bitart ([place] (5/325)) 1 tab Q3H PRN PO PAIN; Start 01/15/17 at 15:00 Morphine Sulfate 1 mg 1 mg Q3H PRN IV PAIN; Start 01/15/17 at 15:00 Ceftriaxone Sodium (Rocephin) 50 ml @ 100 mls/hr Q24H IVPB Last administered on 01/15/17 17:16; Admin Dose 100 MLS/HR; Start 01/15/17 at 16:30 ROCKY BHAKTA MD Jan 16, 2017 15:25
[2017-01-16] MEDS: CEFTRIAXONE 1 GM/50 ML (PMX) 50 ML IVPB SCH (16:03)
[2017-01-16] MEDS: HYDROCODONE/APAP (7.5/325) TAB PO PRN ×2 (16:04→20:37)
[2017-01-16 19:26] VITALS: BP 126/62; RESP 20
[2017-01-16] MEDS: ZOLPIDEM 5 MG TAB PO PRN (23:18)
[2017-01-17] MEDS: HYDROmorphONE 2 MG/ML SYG IV PRN ×2 (02:33→06:33)
[2017-01-17 07:32] VITALS: BP 111/56; RESP 19
[2017-01-17] MEDS: HYDROCODONE/APAP (7.5/325) TAB PO PRN (09:19)
--- NOTE | 2017-01-17 10:41 | PN ---
Date/Time of Note Date/Time of Note DATE: 01/17/17 TIME: 10:39 Assessment/Plan VTE Prophylaxis VTE Prophylaxis Intervention: SCD's Lines/Catheters IV Catheter Type (from Nrsg): Saline Lock Urinary Cath still in place: No Assessment/Plan Assessment/Plan 1. Sepsis per criteria secondary to right arm abscess and cellulitis. 2. Right arm abscess( possible right elbow abscess) s/p Incision and drainage by orthopedic 3. Intractable right arm pain due to abscess Plan: d/c home today wtih Po abx follow up with and PMD as outpatient Subjective 24 Hr Interval Summary Free Text/Dictation doing ok, afebrile, BP stable Exam/Review of Systems Vital Signs Vitals Vital Signs Date Time Temp Pulse Resp B/P Pulse Ox O2 Delivery O2 Flow Rate FiO2 01/17/17 07:32 98.0 61 19 111/56 96 01/15/17 15:37 Room Air Intake and Output 01/16/17 01/16/17 01/17/17 15:00 23:00 07:00 Intake Total 200 ml 2670 ml 800 ml Balance 200 ml 2670 ml 800 ml Exam Constitutional: alert, oriented Respiratory: clear to auscultation, normal air movement Cardiovascular: nl pulses, regular rate and rhythm Gastrointestinal: nl liver, spleen, non-tender, soft Extremities: other (Right arm better range of motion.) Results Result Diagram: 01/16/17 0455 01/16/17 0455 Medications Medications Current Medications Ondansetron HCl (Zofran Inj) 4 mg Q6H PRN IV NAUSEA AND/OR VOMITING; Start 01/11 at 19:30 Acetaminophen (Tylenol Tab) 650 mg Q6H PRN PO PAIN LEVEL 1-3 OR FEVER Last administered on 01/11/17 19:31; Admin Dose 650 MG; Start 01/11/17 at 19:30 Docusate Sodium (Colace) 100 mg Q12H PRN PO CONSTIPATION; Start 01/11/17 at 19: 30 Zolpidem Tartrate (Ambien) 5 mg QHS PRN PO SLEEP Last administered on 01/16/17 23:18; Admin Dose 5 MG; Start 01/11/17 at 19:30 Hydromorphone HCl (Dilaudid) 2 mg Q4H PRN IV Severe PAIN Last administered on 06:33; Admin Dose 2 MG; Start 01/12/17 at 11:00 Acetaminophen/ Hydrocodone Bitart ([place] (7.5-325)) 1 tab Q3 PRN PO pain Last administered on 01/17/17 09:19; Admin Dose 1 TAB; Start 01/12/17 at 18:30 Acetaminophen/ Hydrocodone Bitart ([place] (5/325)) 1 tab Q3H PRN PO PAIN; Start 01/15/17 at 15:00 Morphine Sulfate 1 mg 1 mg Q3H PRN IV PAIN; Start 01/15/17 at 15:00 Ceftriaxone Sodium (Rocephin) 50 ml @ 100 mls/hr Q24H IVPB Last administered on 01/16/17 16:03; Admin Dose 100 MLS/HR; Start 01/15/17 at 16:30 ROCKY BHAKTA MD Jan 17, 2017 10:40
--- NOTE | 2017-01-17 10:45 | PDOCDIS ---
Discharge Instructions CONDITION Patient Condition: Good HOME CARE INSTRUCTIONS: Special Diet: regular diet ACTIVITY: Activity Restrictions: Slowly Increase Activity Rest between Activity Avoid heavy lifting Avoid Heavy Housework FOLLOW UP/APPOINTMENTS Appointments Follow up with PMD through HMO insurance in 1-2 week after discahrge., Follow up with Orthopedic DrMattiIn romina Carbajal in 2 weeks after discharge. Follow up with ID in 2-3 weeks ROCKY BHAKTA MD Jan 17, 2017 10:45
[2017-01-17] MEDS ORDERED: CEPH500C PO (10:48)
[2017-01-17] MEDS ORDERED: SULF1TAB31 PO (10:48)
--- NOTE | 2017-01-17 13:27 | CONS ---
Date/Time of Note Date/Time of Note DATE: 01/17/17 TIME: 13:26 Assessment/Plan Assessment/Plan Chief Complaint/Hosp Course SUBJECTIVE: No acute changes overnight. The patient is alert, feels good, looks comfortable. No fevers. MICROBIOLOGY: Wound culture of his right upper extremity growing Staphylococcus aureus resistant only to penicillin and erythromycin. ANTIMICROBIALS: The patient is on IV Rocephin. PHYSICAL EXAMINATION: GENERAL: Well-developed, well-nourished young man, who is alert, in no distress. HEENT: Head atraumatic, normocephalic. Sclerae anicteric. Buccal mucosa pink. NECK: Supple, trachea midline. CHEST: Rise symmetrical. Breath sounds clear. HEART: S1, S2. ABDOMEN: Soft, bowel sounds present. EXTREMITIES: With right upper extremity Zaire wrap. ASSESSMENT: 1. Right upper extremity cellulitis with abscess, status post incision and drainage with wound culture growing oxacillin-sensitive Staphylococcus aureus. 2. Status post systemic inflammatory response syndrome. PLAN: The patient remains stable. Anticipate dc on PO Bactrim, follow orthopedic recommendations in regards to wound management. DW staff Problems: Consultation Date/Type/Reason Admit Date/Time Jan 11, 2017 at 17:51 Initial Consult Date Type of Consultation: ID Exam/Review of Systems Vital Signs Vitals Vital Signs Date Time Temp Pulse Resp B/P Pulse Ox O2 Delivery O2 Flow Rate FiO2 01/17/17 07:32 98.0 61 19 111/56 96 01/15/17 15:37 Room Air Intake and Output 01/16/17 01/16/17 01/17/17 15:00 23:00 07:00 Intake Total 200 ml 2670 ml 800 ml Balance 200 ml 2670 ml 800 ml Results Result Diagram: 01/16/17 0455 01/16/17 0455 ANITA MIGUEL NP Jan 17, 2017 13:27
--- NOTE | 2017-01-18 00:07 | DS ---
DATE OF ADMISSION: 01/11/2017 DATE OF DISCHARGE: 01/17/2017 FINAL DISCHARGE DIAGNOSES: 1. Sepsis, poor criteria secondary to right arm abscess/cellulitis. 2. Right arm abscess, status post incision and drainage by orthopedic surgery, Dr. Carbajal. 3. Intractable right arm pain due to the abscess. CONSULTATIONS DONE DURING THIS HOSPITALIZATION: 1. Orthopedic surgery consult, Dr. Mona Carbajal. 2. Infectious disease consult, Dr. Rodriguez. PROCEDURES AND OPERATIONS PERFORMED DURING THIS HOSPITALIZATION: The patient underwent incision and drainage x2 for right arm abscess. HOSPITAL COURSE: This is a 31-year-old male with a past medical history of tonsillectomy, who prese nted with a complaint of right arm pain, swelling and erythema. He is noted to have right arm cellu litis/abscess. He had sepsis criteria on admission and admitted to the med-surg floor, was treated with IV antibiotics, IV fluids. He was seen by Orthopedic Surgery, Dr. Mona Carbajal, who recommended i ncision and drainage. The patient underwent incision and drainage x2 for his right arm abscess. Po stoperatively, he remained hemodynamically stable. He was seen by infectious disease service, Dr. Marta rasmussen, because of his wound. He was set up for home health for wound care upon discharge and he get s discharged home with prescriptions of Keflex and Bactrim. DISPOSITION: To home. DISCHARGE CONDITION: Stable and improved compared to admission. DISCHARGE ACTIVITIES: As tolerated, slowly resume to the normal baseline activity. DISCHARGE DIET: Regular diet. DISCHARGE MEDICATIONS: He is given a prescription of Keflex, Bactrim for his right arm cellulitis a nd Dilaudid for p.r.n. pain control. DISCHARGE FOLLOWUP AND INSTRUCTIONS: 1. The patient is to follow up with his own primary care doctor through his HMO insurance 1 to 2 we eks after discharge. 2. The patient is to follow with orthopedic surgeon, Dr. Mona Carbajal 1 to 2 weeks after discharge. 3. The patient is to follow with infectious disease service, Dr. Rodriguez, as outpatient in 1 to 2 we eks after discharge. He has been explained about the discharge plan and followup instructions. He understood and verbalized understanding. Dictated By: ROCKY BHAKTA MD, KP/ROSAURA Conf#: [id number] DID#: [id number]
== END 2017-01-17 12:00 | disposition home or self-care (01) | DRG 854 ==
LOC: MS2 17:51
PROVIDERS: ADMIT Family Medicine; ATTEND Family Medicine
PROC: 0J9G00Z Drainage of Right Lower Arm Subcutaneous Tissue and Fascia with Drainage Device, Open Approach (ICD-10-PCS; principal; 2017-01-12 17:00)
PROC: 0JDG0ZZ Extraction of Right Lower Arm Subcutaneous Tissue and Fascia, Open Approach (ICD-10-PCS; 2017-01-15)
DX: A41.01 Sepsis due to Methicillin susceptible Staphylococcus aureus (principal); L02.413 Cutaneous abscess of right upper limb; L03.113 Cellulitis of right upper limb; R76.0 Raised antibody titer; F17.210 Nicotine dependence, cigarettes, uncomplicated; Z16.29 Resistance to other single specified antibiotic; Z16.11 Resistance to penicillins
CPT/HCPCS: 71010; 73221; 80048; 80053; 80202; 82565; 83036; 83735; 84100; 84520; 85025; 85610; 85730; 86703; 86704; 86709; 86803; 86850; 86900; 86901; 86920; 87070; 87075; 87102; 87340; 90686; 93005; J0131; J0690; J0696; J1100; J1170; J1885; J2250; J2270; J2370; J2405; J2710; J2765; J2795; J3010; J3370; J7030; J7040; J7050